=== PATIENT | male | born 1930 | race Caucasian/White ===

== ENCOUNTER 2017-02-07 18:13 | Emergency (ER) | payer MEDICARE ==
[2017-02-07 18:55] LABS: Hemoglobin 12.6 g/dL (14.0-18.0); Mean Corpuscular HGB CONC 33.6 g/dL (32.0-36.0); Mean Corpuscular Hemoglobin 28.7 pg (27.0-31.0); Mean Corpuscular Volume 85.3 fl (80.0-94.0); Mean Platelet Volume 6.4 fL (7.4-10.4); Platelet Count 294 thou/uL (130-400); Red Blood Cell (RBC) Count 4.39 mill/uL (4.70-6.10); White Blood Cell (WBC) Count 19.4 thou/uL (4.8-10.8)
[2017-02-07 18:56] LABS: Eosinophils 2 % (0-10); Lymphocytes 7 % (21-51); MDiff Complete? YES; Monocytes 7 % (0-10); Neutrophil 83 % (42-75)
[2017-02-07 18:59] LABS: ALT (SGPT) 10 U/L (8-55); AST (SGOT) 12 U/L (5-34); Albumin 3.7 g/dL (3.4-4.8); Alkaline Phosphatase 82 U/L (40-150); Anion Gap 13 mmol/L (10-20); BUN (Urea Nitrogen) 19 mg/dL (8.4-25.7); Bilirubin, Total 0.7 mg/dL (0.2-1.2); Calc. Creatinine Clearance 0 mL/min (70-130); Calcium 9.1 mg/dL (7.8-10.44); Carbon Dioxide 24 mmol/L (23-31); Chloride 112 mmol/L (98-107); Estimated GFR-MDRD 36; Globulin 3.9 g/dL (2.4-3.5); Glucose 108 mg/dL (83-110); Potassium 3.9 mmol/L (3.5-5.1); Protein, Total 7.6 g/dL (5.8-8.1); Sodium 145 mmol/L (136-145)
[2017-02-07 19:01] LABS: CKMB 1.1 ng/mL (0-6.6)
[2017-02-07 20:03] LABS: Bilirubin Negative (Negative); Blood, Urine Moderate (Negative); Clarity Cloudy (Clear); Glucose, Urine (Dipstick) Negative (Negative); Leukocyte Moderate (Negative); Nitrite Positive (Negative); Protein, Urine (Dipstick) > or equal to 300 mg/dL (Neg-Trace); Specific Gravity, Urine 1.015 (1.005-1.030); Urobilinogen 0.2 mg/dL (0.2-1.0); pH, Urine 5.5 (5.0-9.0)
[2017-02-07 20:19] LABS: Bacteria/HPF 4+ HPF (None Seen); Crystals/HPF None Seen HPF (Negative); Hyaline Casts/LPF NONE SEEN LPF (0-3 Hyaline); Other Casts/LPF None Seen LPF (0-3 Hyaline); Oval Fat Bodies/HPF None Seen HPF (None Seen); RBC/HPF 21-50 HPF (0-3); Renal Epithelial None Seen HPF (0-3); Sperm/HPF None Seen HPF (None Seen); Squamous Epithelial None Seen HPF (0-3); Transitional Epithelial NONE SEEN HPF (0-3); Trichomonas/HPF None Seen HPF (None Seen); Yeast-All Forms None Seen HPF (None Seen)
[2017-02-07] MEDS ORDERED: cefTRIAXone\\ROCEPHIN 1 GM VIAL ONE (20:42)
[2017-02-07 21:43] LABS: Troponin I 0.083 ng/mL (< 0.028)
--- NOTE | 2017-02-07 21:51 | RAD ---
PORTABLE CHEST 02/07/17 An AP portable film at 1833 is submitted and compared with a 06/22/14 study. The heart is mildly enlarged. Arteriosclerotic change is seen in the aorta. There are no congestive changes in the lungs. No effusions are seen. No lobar consolidations were seen. IMPRESSION: Cardiomegaly and arteriosclerosis but no definite acute findings. POS: [facility]
== END 2017-02-07 22:19 | disposition home or self-care (01) ==
LOC: BURERS 18:13
DX: N39.0 Urinary tract infection, site not specified (principal); E78.5 Hyperlipidemia, unspecified; E78.00 Pure hypercholesterolemia, unspecified; I10 Essential (primary) hypertension; F03.90 Unspecified dementia, unspecified severity, without behavioral disturbance, psychotic disturbance, mood disturbance, and anxiety; Z87.891 Personal history of nicotine dependence; Z79.899 Other long term (current) drug therapy; Z79.82 Long term (current) use of aspirin
CPT/HCPCS: 36415; 71010; 80053; 81003; 81015; 82553; 84443; 84484; 85025; 87040; 87077; 87086; 87186; 93005; 96361; 96365; J0696

== ENCOUNTER 2017-02-17 14:04 | Emergency (ER) | payer MEDICARE ==
--- NOTE | 2017-02-17 15:54 | CT ---
CT BRAIN: Date: 02/17/17 HISTORY: Headache. Dementia. FINDINGS: Comparison made to previous exam from 09/12/15. Noncontrast enhanced CT images of the brain demonstrate a small right frontal subdural hematoma agai n seen, unchanged since the previous exam. There is cortical atrophy seen. Deep white matter ischemi c changes seen. No evidence of acute intracranial masses, hemorrhages, strokes, or contusions seen. 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 No acute intracranial abnormality seen. No significant midline shift is seen. POS: [facility]
== END 2017-02-17 15:36 | disposition home or self-care (01) ==
LOC: BURERS 14:04
DX: R51 Headache (principal); I10 Essential (primary) hypertension; F03.90 Unspecified dementia, unspecified severity, without behavioral disturbance, psychotic disturbance, mood disturbance, and anxiety; E78.5 Hyperlipidemia, unspecified; Z87.891 Personal history of nicotine dependence
CPT/HCPCS: 70450

== ENCOUNTER 2017-06-28 09:39 | Emergency (ER) | payer MEDICARE ==
[2017-06-28 10:01] LABS: #Basophils 0.2 thou/uL (0.0-0.2); #Eosinphils 0.1 thou/uL (0.0-0.7); #Lymphocytes 1.4 thou/uL (1.20-3.40); #Monocytes 0.7 thou/uL (0.11-0.59); #Neutrophils 11.6 thou/uL (1.40-6.50); %Basophils 1.3 % (0.0-1.0); %Eosinophils 0.5 % (0.0-10.0); %Lymphocytes 9.7 % (21.0-51.0); %Monocytes 4.7 % (0.0-10.0); %Neutrophils 83.8 % (42.0-75.0); Hemoglobin 12.2 g/dL (14.0-18.0); Mean Corpuscular HGB CONC 32.5 g/dL (32.0-36.0); Mean Corpuscular Hemoglobin 27.7 pg (27.0-31.0); Mean Corpuscular Volume 85.3 fl (80.0-94.0); Platelet Count 304 thou/uL (130-400); Red Blood Cell (RBC) Count 4.39 mill/uL (4.70-6.10); White Blood Cell (WBC) Count 13.9 thou/uL (4.8-10.8)
[2017-06-28 10:05] LABS: INR-International Normal Ratio 1.3; Prothrombin Time 16.6 SEC (12.0-14.7)
[2017-06-28 10:15] LABS: ALT (SGPT) 16 U/L (8-55); AST (SGOT) 19 U/L (5-34); Albumin 3.6 g/dL (3.4-4.8); Alkaline Phosphatase 92 U/L (40-150); Anion Gap 15 mmol/L (10-20); BUN (Urea Nitrogen) 12 mg/dL (8.4-25.7); Bilirubin, Total 0.7 mg/dL (0.2-1.2); Calc. Creatinine Clearance 0 mL/min (70-130); Carbon Dioxide 20 mmol/L (23-31); Chloride 110 mmol/L (98-107); Estimated GFR-MDRD 42; Globulin 3.8 g/dL (2.4-3.5); Glucose 110 mg/dL (83-110); Lipase 44 U/L (8-78); Potassium 3.9 mmol/L (3.5-5.1); Protein, Total 7.4 g/dL (5.8-8.1); Sodium 141 mmol/L (136-145)
[2017-06-28 10:19] LABS: CKMB 1.4 ng/mL (0-6.6); Troponin I 0.034 ng/mL (< 0.028)
--- NOTE | 2017-06-28 10:22 | CT ---
CT HEAD NONCONTRAST: History: Dizziness. Altered mental status. Comparison: 02-17-17 FINDINGS: There is no evidence of acute intracranial hemorrhage or infarct. The ventricles appear normal in siz e, shape, and position. Extraaxial CSF prominence of the right frontal convexity is stable compared t o the previous exam. There is no mass effect or shift of midline structures. Calcifications apparent within the arterial structures. IMPRESSION: Chronic type findings are stable. No acute intracranial abnormalities are demonstrated on noncontrast CT head. POS: [facility]
[2017-06-28 10:27] LABS: Bilirubin Negative (Negative); Blood, Urine Moderate (Negative); Clarity Cloudy (Clear); Glucose, Urine (Dipstick) Negative (Negative); Leukocyte Large (Negative); Nitrite Negative (Negative); Protein, Urine (Dipstick) 30 mg/dL (Neg-Trace); Urobilinogen 0.2 mg/dL (0.2-1.0); pH, Urine 5.5 (5.0-9.0)
[2017-06-28 10:34] LABS: Bacteria/HPF 1+ HPF (None Seen); RBC/HPF GREATER THAN 50-TNTC HPF (0-3); Squamous Epithelial 0-3 HPF (0-3)
--- NOTE | 2017-06-28 10:52 | RAD ---
CHEST ONE VIEW: History: Cough, dyspnea, pancreatitis. Comparison: 02-07-17 FINDINGS: Cardiac silhouette remains magnified and enlarged. Pulmonary vasculature is upper limits of normal. M ediastinum is midline with aortic calcification, post-operative changes and a dual-lead left subclavi an cardiac electronic device. No lobar consolidation or pneumothorax are apparent. IMPRESSION: 1. Cardiomegaly, stable. Borderline pulmonary vascular congestion. 2. Atherosclerosis. POS: [facility]
[2017-06-28] MEDS ORDERED: Meclizine HCl 25 MG TAB ONE (10:59)
[2017-06-28] MEDS ORDERED: Cephalexin 500 MG CAP ONE (10:59)
[2017-06-28 12:12] LABS: Troponin I 0.022 ng/mL (< 0.028)
== END 2017-06-28 12:26 | disposition home or self-care (01) ==
LOC: BURERS 09:39
DX: R42 Dizziness and giddiness (principal); I10 Essential (primary) hypertension; F03.90 Unspecified dementia, unspecified severity, without behavioral disturbance, psychotic disturbance, mood disturbance, and anxiety; E78.5 Hyperlipidemia, unspecified; C67.9 Malignant neoplasm of bladder, unspecified; Z87.891 Personal history of nicotine dependence; Z79.82 Long term (current) use of aspirin; Z79.01 Long term (current) use of anticoagulants; Z79.899 Other long term (current) drug therapy
CPT/HCPCS: 36415; 70450; 71010; 80053; 81003; 81015; 82553; 83690; 84443; 84484; 85025; 85610; 85730; 87804; 93005; 96360

== ENCOUNTER 2018-04-21 07:35 | Emergency (ER) | payer MEDICARE ==
--- NOTE | 2018-04-21 09:10 | RAD ---
ONE VIEW PELVIS: HISTORY: Pain. Trauma. COMPARISON: None. FINDINGS: A portion of a double-J ureteral stent is identified. Limited evaluation of the sacral alae. Sacroi liac joints are patent and symmetric. Bony pelvis is intact. Contour of both femoral heads is maint ained on the single projection and the hip joint spaces are symmetric. IMPRESSION: Posttraumatic change. POS: [facility]
--- NOTE | 2018-04-21 09:11 | RAD ---
RIGHT HIP 2 VIEWS: HISTORY: Pain. Trauma. COMPARISON: None. FINDINGS: Contour of the femoral head is maintained. No fracture. Mild loss of joint space height. IMPRESSION: No posttraumatic change. POS: [facility]
--- NOTE | 2018-04-21 09:12 | RAD ---
LEFT HIP 2 VIEWS: HISTORY: Pain. Trauma. COMPARISON: None. FINDINGS: Contour of femoral head is maintained. No fracture. Mild loss of joint space height. IMPRESSION: No posttraumatic change. POS: [facility]
== END 2018-04-21 08:37 | disposition home or self-care (01) ==
LOC: BURERS 07:35
DX: S30.0XXA Contusion of lower back and pelvis, initial encounter (principal); I10 Essential (primary) hypertension; F03.90 Unspecified dementia, unspecified severity, without behavioral disturbance, psychotic disturbance, mood disturbance, and anxiety; E78.5 Hyperlipidemia, unspecified; Z87.891 Personal history of nicotine dependence; W17.89XA Other fall from one level to another, initial encounter
CPT/HCPCS: 72170; 93005; 94760

== ENCOUNTER 2018-07-04 07:29 | Emergency (ER) | payer MEDICARE, MEDICAID ==
--- NOTE | 2018-07-04 19:08 | RAD ---
LUMBAR SPINE THREE VIEWS: 07/04/18 Scoliosis is present convexed left. The vertebral bodies did not show any obvious compression fractur e. The disc spaces are normal in height. The bones are slightly osteopenic, so all are not seen optim ally. The SI joints are symmetrical. The aorta is densely calcified. A double pigtail catheter is se en in the left ureter/collecting system/urinary bladder. Degenerative changes are present in the spin e but relatively mild for age. IMPRESSION: No acute changes. See CT report to follow. POS: [facility]
--- NOTE | 2018-07-04 19:11 | RAD ---
PELVIS ONE VIEW: 07/04/18 No bony fractures were appreciated. There is slight osteoporosis which could mask subtle injuries. Th e symphysis shows no widening. The SI joints are symmetrical. IMPRESSION: No acute bony finding. POS: [facility]
--- NOTE | 2018-07-04 19:51 | CT ---
CT OF THE LUMBAR SPINE 07/04/[address] of the lumbar spine was performed for evaluation after a fall. Axial slices were acquired, then coronal and sagittal reconstructions were done. There is a fracture of the right transverse process of L1 with fairly sharp edges, so it may be more recent. There is a fracture of the right transverse process of L2 that is obviously old, however. N o vertebral compression fractures were seen. There was no area of bony destruction. The remnant of a large Schmorl's node is seen in the L3 vertebral body on the left side posteriorly. There is a moderate degree of central canal stenosis at L4-L5 due to a combination of a diffusely bul ging disc plus ligamentous and facet hypertrophy. No focal herniations were seen elsewhere. A uretera l stent is seen on the left. The proximal left ureter is rather dilated. There does not appear to be left hydronephrosis, however. The aorta is calcified and dilated but no aneurysm of any significant s ize was seen. The aorta is transiently dilated just above the bifurcation but the AP diameter is stil l only 2.2 cm. IMPRESSION: 1. Fracture of the right transverse process of L1. Looks more recent than not. Fracture right tr ansverse process of L2 that is obviously old. 2. No compression fracture is appreciated. 3. Moderate spinal stenosis at L4-L5. Findings discussed with Dr. Chowdary at 0905 on 07/04/18. POS: HOME
== END 2018-07-04 10:21 ==
LOC: BURERS 07:29
DX: S39.92XA Unspecified injury of lower back, initial encounter (principal); I10 Essential (primary) hypertension; F03.90 Unspecified dementia, unspecified severity, without behavioral disturbance, psychotic disturbance, mood disturbance, and anxiety; E78.5 Hyperlipidemia, unspecified; D64.9 Anemia, unspecified; I25.10 Atherosclerotic heart disease of native coronary artery without angina pectoris; I48.91 Unspecified atrial fibrillation; Z87.891 Personal history of nicotine dependence; Z79.899 Other long term (current) drug therapy; W17.89XA Other fall from one level to another, initial encounter
CPT/HCPCS: 72100; 72131; 72170

== ENCOUNTER 2018-07-06 11:30 | Emergency (ER) | payer MEDICARE, MEDICAID ==
[2018-07-06] MEDS ORDERED: traMADol HCl 50 MG TAB ONE (12:46)
--- NOTE | 2018-07-06 14:10 | CT ---
CT LEFT HIP: Date: 07/06/[address] of the left hip was performed for evaluation of persisting pain following trauma. A review of the 07/04/18 pelvis film failed to show any definite acute fracture. Today's exam was done due to the persistent pain and to look for a more subtle injury. Axial slices were acquired, then coronal an d sagittal reconstructions were done. FINDINGS: There indeed is a subtle nondisplaced avulsion fracture from the superior aspect of the greater troch anter. This appears relatively recent. The femoral neck appears intact. There is no dislocation of th e hip. There is some bony spurring around the hip joint, but the articular surfaces are smooth. There is a nonacute fracture of the left inferior pubic ramus that appears at least subacute if not older. It is certainly not recent as there is some sclerosis of bone and periosteal reaction around it, but there is not complete healing either. IMPRESSION: 1. Relatively recent subtle fracture on the top of the greater trochanter of the left femur. There i s no displacement. 2. Older fracture of the left inferior pubic ramus, without a doubt not related to current injury. I n the process of healing, or healed poorly. Findings discussed with Dr. Mccloud at 1220 hours on 07/06/18. CODE CR. POS: HOME
== END 2018-07-06 12:51 | disposition home or self-care (01) ==
LOC: BURERS 11:30
DX: S72.115A Nondisplaced fracture of greater trochanter of left femur, initial encounter for closed fracture (principal); I10 Essential (primary) hypertension; F03.90 Unspecified dementia, unspecified severity, without behavioral disturbance, psychotic disturbance, mood disturbance, and anxiety; E78.5 Hyperlipidemia, unspecified; D64.9 Anemia, unspecified; I25.10 Atherosclerotic heart disease of native coronary artery without angina pectoris; I48.91 Unspecified atrial fibrillation; Z87.891 Personal history of nicotine dependence; Z79.899 Other long term (current) drug therapy; W19.XXXA Unspecified fall, initial encounter